=== PATIENT | male | born 1980 | race Caucasian/White ===

== ENCOUNTER 2019-11-19 10:54 | Outpatient (CLI) | payer BC ==
--- NOTE | 2019-11-19 11:33 | RAD ---
LEFT SHOULDER 3 VIEWS: Date: 11/19/2019 PROVIDED CLINICAL HISTORY: Pain. FINDINGS: No evidence for fracture or other acute osseous abnormality. Subacromial space appears narrowed. Jules ohumeral relationship appears normal. The visualized left lung field appears clear. IMPRESSION: Mild narrowing of the subacromial space, nonspecific. If there is concern for rotator cuff insufficie ncy, consider MRI. POS: OFF
== END 2019-11-19 10:55 | disposition home or self-care (01) ==
LOC: SCSRAD 10:54
PROVIDERS: ATTEND Family Medicine
DX: M25.512 Pain in left shoulder (principal); M25.812 Other specified joint disorders, left shoulder

== ENCOUNTER 2020-10-15 11:36 | Outpatient (CLI) | payer BC | END 2020-10-15 11:37 | disposition home or self-care (01) | LOC: CTENTCT 11:36 | PROVIDERS: ATTEND Specialist | DX: J32.8 Other chronic sinusitis (principal) | CPT/HCPCS: 70486 ==